=== PATIENT | female | born 1960 | race Caucasian/White ===

== ENCOUNTER → 2024-07-15 | Outpatient (CLI) | payer BC ==
--- NOTE | 2024-07-15 14:15 | XR ---
EXAMINATION TYPE: XR foot limited bilateral DATE OF EXAM: 07/15/2024 12:44 PM COMPARISON: None CLINICAL INDICATION: Female, 64 years old with history of M79.671 M79.672 2V RT LT MID OBLIQU/PAIN ; PHH, pain TECHNIQUE: XR foot limited bilateral examined in the AP, oblique, and lateral projections. FINDINGS: Right: No evidence of any acute osseous pathology. Multifocal degeneration changes throughout the santosh nts of the foot with osteophyte formation and joint space narrowing. Calcaneal plantar spurring is pr esent. Calcaneal Achilles enthesophyte. Calcification also along the plantar surface. Left: No evidence of any acute osseous pathology. Multifocal degeneration changes throughout the join ts of the foot with osteophyte formation and joint space narrowing. Calcaneal plantar spurring is pre sent. Calcaneal Achilles enthesophyte. Calcification also along the plantar surface. IMPRESSION: 1. No evidence of acute fracture bilaterally. 2. 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 3. Bilateral cranial plantar spurring. [facility], , 07/15/2024 2:13 PM
== END | disposition home or self-care (01) ==
LOC: RADXRMAIN 12:14
PROVIDERS: ATTEND Podiatrist Primary Podiatric Medicine
DX: M19.071 Primary osteoarthritis, right ankle and foot (principal); M19.072 Primary osteoarthritis, left ankle and foot; M77.31 Calcaneal spur, right foot; M77.32 Calcaneal spur, left foot

== ENCOUNTER → 2024-11-30 | Outpatient (CLI) | payer BC ==
--- NOTE | 2024-11-30 11:14 | XR ---
EXAMINATION TYPE: XR foot complete RT DATE OF EXAM: 11/30/2024 COMPARISON: Bilateral foot radiographs 07/15/2024 HISTORY: Midfoot pain lateral foot pain TECHNIQUE: Frontal, lateral and oblique images of the right foot are obtained. FINDINGS: There is no acute fracture/dislocation evident. Mild multifocal degenerative changes throu ghout the joints of the foot with osteophyte formation and joint space narrowing. Moderate-sized calc aneal enthesophyte identified along the plantar aspect. No osseous erosions. No soft tissue swelling. IMPRESSION: 1. No acute fracture or dislocation. 2. Mild degenerative changes of the foot. 3. Moderate sized plantar calcaneal enthesophyte. [facility], , 11/30/2024 11:12 AM
== END | disposition home or self-care (01) ==
LOC: RADXRMAIN 10:51
PROVIDERS: ATTEND Podiatrist Primary Podiatric Medicine
DX: M19.071 Primary osteoarthritis, right ankle and foot (principal); M77.31 Calcaneal spur, right foot
CPT/HCPCS: 84550